=== PATIENT | female | born 1935 | race Two or more races ===

== ENCOUNTER 2016-10-09 14:31 | Inpatient (IN) | payer MEDICARE, OTHER ==
[~2016-10-09] VITALS: Ht 152.4 cm; Wt 81.6 kg
[~2016-10-09 14:31] MED LIST: ALLO100T PO; ASPI-991 PO; ATOR20TA PO; CARV3.122 PO; FENO145T20 PO; FOLI1TAB16 PO; FURO40TA5 PO; INSU3INS6 SQ
--- NOTE | 2016-10-09 14:45 | NUR ---
PT BIB PA FOR EVAL OF BLE +4 PITTING EDEMA. SKIN TAUT AND DRY. DENIES PAIN. NAD NOTED. RESP EVEN UNLABORED AT 3LPM VIA NC AT BASELINE. NO OTHER COMPLAINTS. IN ER BED 10.
[2016-10-09 15:31] LABS: BASOPHILS # (AUTO) 0.2 /CMM (0.0-0.2); BASOPHILS % (AUTO) 2.1 % (0.0-2.0); EOSINOPHILS % (AUTO) 0.6 % (0.0-6.0); HEMATOCRIT 32 % (33-45); HEMOGLOBIN 10.4 g/dL (11.5-14.8); LYMPHOCYTES # (AUTO) 3.4 /CMM (0.8-4.8); LYMPHOCYTES % (AUTO) 44.1 % (20.0-44.0); MEAN CORPUSCULAR HEMOGLOBIN 30 PG (26.0-33.0); MEAN CORPUSCULAR HGB CONC 32 g/dl (31.0-36.0); MEAN CORPUSCULAR VOLUME 93 fL (82-100); MONOCYTES # (AUTO) 0.7 /CMM (0.1-1.30); MONOCYTES % (AUTO) 8.5 % (2.0-12.0); NEUTROPHILS # (AUTO) 3.4 /CMM (1.8-8.9); NEUTROPHILS % (AUTO) 44.7 % (43.0-81.0); PLATELET COUNT (AUTO) 195 /CMM (150-450); RDW COEFFICIENT OF VARIATION 15.8 (11.5-15.0); RED BLOOD CELL COUNT(AUTO) 3.46 MIL/uL (4.0-5.2); WHITE BLOOD COUNT (AUTO) 7.7 K/uL (4.3-11.0)
[2016-10-09 15:46] LABS: CALCIUM, SERUM 8.8 mg/dL (8.5-10.1); POTASSIUM 4.7 mmol/L (3.5-5.1)
[2016-10-09 15:48] LABS: INR 1.06 (0.87-1.13)
[2016-10-09 15:49] LABS: TROPONIN I 0.032 ng/mL (0.00-0.056)
[2016-10-09 15:59] LABS: ALBUMIN 3.1 g/dL (3.4-5.0); BILIRUBIN,DIRECT 0.1 mg/dL (0.0-0.2); BILIRUBIN,TOTAL 0.3 mg/dL (0.2-1.0); TOTAL PROTEIN, SERUM 7.4 g/dL (6.4-8.2)
[2016-10-09] MEDS ORDERED: BLOO-668 IN (15:59)
[2016-10-09] MEDS ORDERED: INSU100V11 SQ (15:59)
[2016-10-09] MEDS ORDERED: LATA2.5D7 EACHEYE (15:59)
[2016-10-09] MEDS ORDERED: ATOR40TA PO (15:59)
[2016-10-09] MEDS ORDERED: MULT-659 PO (15:59)
[2016-10-09] MEDS ORDERED: DIPH25CA6 PO (15:59)
[2016-10-09] MEDS ORDERED: ASPI81TA2 PO (15:59)
[2016-10-09] MEDS ORDERED: NITR0.4T6 SL (15:59)
[2016-10-09] MEDS ORDERED: CHOL100044 PO (15:59)
[2016-10-09] MEDS ORDERED: POTA-88 PO (15:59)
[2016-10-09] MEDS ORDERED: DORZ10DR11 EACHEYE (15:59)
[2016-10-09] MEDS ORDERED: HYDR-3326 PO (15:59)
[2016-10-09] MEDS ORDERED: IPRA3AMP IH (15:59)
[2016-10-09] MEDS ORDERED: ASCO500T9 PO (15:59)
[2016-10-09] MEDS ORDERED: ACET-868 PO (15:59)
[2016-10-09] MEDS ORDERED: BISA5TAB10 PO (15:59)
--- NOTE | 2016-10-09 16:55 | NUR ---
MS 107
--- NOTE | 2016-10-09 17:13 | NUR ---
REPORT GIVEN TO HARISH RAMÍREZ FOR ADMISSION
--- NOTE | 2016-10-09 17:53 | NUR ---
PT TRANSPORTED TO 107 IN STABLE CONDITION VIA ACLS PROTOCOL
[2016-10-09 18:00] VITALS: BP 135/72
[2016-10-09] MEDS ORDERED: ONDANSETRON HCL/PF 4 MG/2 ML VIAL IVP PRN (18:00)
[2016-10-09] MEDS ORDERED: ZOLPIDEM TARTRATE 5 MG TABLET PO PRN (18:00)
[2016-10-09] MEDS ORDERED: BLOOD SUGAR DIAGNOSTIC 1 EACH STRIP IN SCH (18:00)
[2016-10-09] MEDS ORDERED: NITROGLYCERIN 0.4 MG/TAB BOTTLE SL PRN (18:00)
[2016-10-09] MEDS ORDERED: DEXTROSE 50%-WATER 50 ML DISP.SYRIN IV PRN (18:00)
[2016-10-09] MEDS ORDERED: MAG HYDROX/AL HYDROX/SIMETH 30 ML UDC PO PRN (18:00)
[2016-10-09] MEDS ORDERED: Medication Not On Formulary EA (Ipratropium/Albuterol Sulfate (Duoneb 2.5-0.5 Mg/3 Ml So IH PRN (18:00)
[2016-10-09] MEDS ORDERED: MAGNESIUM HYDROXIDE 30 ML UDC PO PRN (18:00)
[2016-10-09] MEDS ORDERED: Z GUARD REMEDY 2 OZ OINT TP PRN (18:00)
[2016-10-09] MEDS ORDERED: INSULIN REGULAR, HUMAN 100 UNIT/ML 3 ML VIAL SQ PRN (18:00)
[2016-10-09] MEDS ORDERED: ACETAMINOPHEN 325 MG TABLET PO PRN (18:00)
[2016-10-09] MEDS ORDERED: BISACODYL (5 MG) 5 MG TABLET.DR PO PRN (18:00)
--- NOTE | 2016-10-09 18:00 | NUR ---
RN NOTES RECEIVED PT FROM ER ON IN ROOM 107, A/Ox2-3 , ARMENIA SPEAKING , RESPIRATION EVEN AND UNLABORED , ON 02 3L N/C , PLACED ON TELE, HR IN 780'S ,CRACKLES TO SOPHIA LUNG BASES , ENCOURAGED DEEP BREATHING, L AC IV SITE #18 CDI, +2 EDEMA TO SOPHIA LOWER EXTREMITIES , SACRAL AND PERINEAL REDNESS AND EXCORIATION NOTED, WOUND CONSULT ORDERED ,SR UP x3 , CALL LIGHT WITHIN EASY REACH , CONTINUE TO MONITOR PT CLOSELY .
[2016-10-09] MEDS ORDERED: ALBUTEROL FS 2.5 MG/3 ML VIAL.NEB NEB PRN ×2 (18:30→19:00)
[2016-10-09] MEDS ORDERED: IPRATROPIUM NEB FS 0.5 MG/2.5 ML AMPUL.NEB NEB PRN (18:30)
[2016-10-09] MEDS ORDERED: FUROSEMIDE 40 MG/4 ML VIAL IV ONE (18:30)
[2016-10-09] MEDS: ENOXAPARIN SODIUM 40 MG/0.4 ML DISP.SYRIN SQ SCH (18:33)
[2016-10-09 20:00] VITALS: BP 146/77
[2016-10-09] MEDS ORDERED: ATORVASTATIN 40 MG TABLET PO SCH (22:00)
[2016-10-09] MEDS: LATANOPROST EYE DROP 0.005% 2.5 ML BOTTLE EACHEYE SCH (22:15)
[2016-10-09] MEDS: BLOOD SUGAR DIAGNOSTIC 1 EACH STRIP VI SCH (22:24)
[2016-10-09] MEDS: INSULIN DETEMIR 100 UNIT/ML CARTRIDGE SQ SCH (22:27)
[2016-10-09] MEDS: *INSULIN REGULAR(HUMULIN R)HUM 100 UNIT/ML VIAL SQ PRN (23:42)
[2016-10-10] VITALS: BP 132/62
--- NOTE | 2016-10-10 | NUR ---
PROMPT CARE RN: PT REMAINED A/O 2-3. PLACED ON HIGH-CADE'S STILL NOTED WT SOB AND DESATURATION BET. 88-92% ON SEMI-CADE'S AND SINCE START OF SHIFT. INCREASED 02 TO 5L VIA NC AND BREATHING TX GIVEN BY RT. WILL CONTINUE TO MONITOR EFFECTIVITY.
--- NOTE | 2016-10-10 00:30 | NUR ---
LIVESTOCK FARMER: 02 SAT IMPROVED AT 96%. WILL KEEP HOB ELEVATED AT ALL TIMES. REMAINED SR WT BBB.
[2016-10-10 04:00] VITALS: BP 119/45
[2016-10-10 06:37] LABS: BASOPHILS % (AUTO) 0.5 % (0.0-2.0); EOSINOPHILS % (AUTO) 0.2 % (0.0-6.0); HEMATOCRIT 37 % (33-45); HEMOGLOBIN 11.7 g/dL (11.5-14.8); LYMPHOCYTES # (AUTO) 4.9 /CMM (0.8-4.8); LYMPHOCYTES % (AUTO) 48.9 % (20.0-44.0); MEAN CORPUSCULAR HEMOGLOBIN 30 PG (26.0-33.0); MEAN CORPUSCULAR HGB CONC 31 g/dl (31.0-36.0); MEAN CORPUSCULAR VOLUME 94 fL (82-100); MONOCYTES # (AUTO) 1.1 /CMM (0.1-1.30); NEUTROPHILS % (AUTO) 39.4 % (43.0-81.0); PLATELET COUNT (AUTO) 204 /CMM (150-450); RDW COEFFICIENT OF VARIATION 16.9 (11.5-15.0); RED BLOOD CELL COUNT(AUTO) 3.97 MIL/uL (4.0-5.2); WHITE BLOOD COUNT (AUTO) 10.1 K/uL (4.3-11.0)
[2016-10-10 06:50] LABS: CALCIUM, SERUM 8.8 mg/dL (8.5-10.1); MAGNESIUM 1.5 mg/dL (1.8-2.4); PHOSPHORUS 4.7 mg/dL (2.5-4.9); POTASSIUM 4.6 mmol/L (3.5-5.1)
[2016-10-10] MEDS: BLOOD SUGAR DIAGNOSTIC 1 EACH STRIP VI SCH ×4 (06:50→21:46)
--- NOTE | 2016-10-10 06:50 | NUR ---
CAKE TESTER: STILL ON 5L 02 VIA NC WT 02 SAT 93%. NO ACUTE DISTRESS, NO C/O PAIN. DIAPER WAS CHANGED 2X DURING THE SHIFT WT 1 HEAVY SOAKED AND 1 MINIMALLY SOAKED. GOOD SKIN CARE RENDERED. HOB ELEVATED AT ALL TIMES. SAFETY PRECAUTION NOTED.
[2016-10-10 07:10] LABS: THYROID STIMULATING HORMONE 1.944 uIU/mL (0.358-3.74)
--- NOTE | 2016-10-10 07:15 | NUR ---
PASTRY CHEF INITIAL NOTES RECEIVED REPORT AND PT FROM PM NURSE, PT RESTING UPRIGHT IN BED, A&O X2-3 MARSHALLESE SPEAKING, ON 4-5L NC SAT ABOVE 93%, NO SOB, ON TELE MON SR WITH BBB 85, LT AC 18 G INTACT NO S/S OF INFILTRATION, ALL NEEDS MET, ALL SAFETY MEASURES INITIATED, SIDE RAILS X2, BED LOW AND LOCKED, CALL LIGHT WITHIN REACH, WILL CONTINUE TO MONITOR.
[2016-10-10 08:00] VITALS: BP 156/80
--- NOTE | 2016-10-10 08:51 | NUR ---
WOUND CARE CONSULT: PT REFUSED SKIN ASSESSMENT AND IS SOMEWHAT COMBATIVE AT TIMES. WILL SEE PT PT CONDITION PERMITS. RUBI SCORE IS 14. PT ABLE TO ASSIST WITH TURNING AND REPOSITIONING BUT IS UNCOOPERATIVE AT TIMES PER NURSING STAFF. PT ON ANKIT COMFORT GEL MATTRESS. ALL SKIN PROTECTION RECOMMENDATIONS DISCUSSED WITH NURSING STAFF. MD IN AGREEMENT WITH PLAN OF CARE.
[2016-10-10] MEDS ORDERED: FUROSEMIDE 40 MG/4 ML VIAL IV SCH (09:00)
[2016-10-10] MEDS ORDERED: FENOFIBRATE NANOCRYS (145 MG) 145 MG TABLET PO SCH (09:00)
[2016-10-10] MEDS: FOLIC ACID 1 MG TABLET PO SCH (09:01)
[2016-10-10] MEDS: PANTOPRAZOLE 40 MG TABLET.DR PO SCH (09:01)
[2016-10-10] MEDS: CHOLECALCIFEROL 1,000 UNIT TABLET (VIT D3) PO SCH (09:01)
[2016-10-10] MEDS: ASPIRIN 81 MG TAB.CHEW PO SCH (09:01)
[2016-10-10] MEDS: ASCORBIC ACID 500 MG TABLET PO SCH (09:01)
[2016-10-10] MEDS: MULTIVIT, IRON, MIN NO. 8, FA 1 TAB TABLET PO SCH (09:01)
[2016-10-10] MEDS: TIMOLOL MAL/DORZOLAM HCL OPHTH 10 ML BOTTLE EACHEYE SCH ×2 (09:01→16:48)
[2016-10-10] MEDS: ALLOPURINOL 100 MG TABLET PO SCH (09:01)
[2016-10-10] MEDS: CARVEDILOL 3.125 MG TABLET PO SCH (09:03)
[2016-10-10] MEDS ORDERED: ENOXAPARIN SODIUM 40 MG/0.4 ML DISP.SYRIN SQ SCH (10:00)
[2016-10-10] MEDS ORDERED: IV SET PRIMARY PUMP SET 1 EA INFUS.SET MC ONE (10:38)
[2016-10-10] MEDS: FUROSEMIDE 40 MG/4 ML VIAL IV SCH ×3 (10:50→16:48)
[2016-10-10] MEDS: Magnesium 1GM/D5W 100ML PREMIX 100 ML IV SCH ×4 (10:50→14:12)
--- NOTE | 2016-10-10 12:38 | NUR ---
RN MS NOTES PT IS VERY CONFUSED AND TRIES TO GET OUT OF BED, AT BEDSIDE CALMED PT DOWN, PT REFUSES TO EAT AND IS VERY CONFUSED.
[2016-10-10 16:00] VITALS: BP 112/64
[2016-10-10 20:00] VITALS: BP 137/73
[2016-10-10] MEDS: ENOXAPARIN SODIUM 40 MG/0.4 ML DISP.SYRIN SQ SCH (21:49)
[2016-10-10] MEDS: LATANOPROST EYE DROP 0.005% 2.5 ML BOTTLE EACHEYE SCH (21:49)
[2016-10-10] MEDS: INSULIN DETEMIR 100 UNIT/ML CARTRIDGE SQ SCH (21:49)
[2016-10-11] VITALS (44 sets, daily range): BP systolic 46–139; BP diastolic 33–77
--- NOTE | 2016-10-11 06:52 | NUR ---
MS-1/LIQUOR CLERK PT MAKING SEVERAL ATTEMPTS TO EXIT BED AND REMOVE OXYGEN. I TRIED TO REORIENT PT BUT IT SEEMS UNSUCCESSFUL. ENDORSED TO AM SHIFT.
[2016-10-11] MEDS: BLOOD SUGAR DIAGNOSTIC 1 EACH STRIP VI SCH ×4 (06:55→21:08)
--- NOTE | 2016-10-11 07:00 | NUR ---
RN NOTES RECEIVED PT ON BED, AOx1, [place] SPEAKING ,RESPIRATION EVEN AND UNLABORED, ON O2 5L N/C , NO SOB NOTED , LT AC 18 G INTACT NO S/S OF INFILTRATION, SR UP x3, CALL LIGHT WITHIN EASY REACH ALL NEEDS MET, ALL SAFETY MEASURES INITIATED, SIDE RAILS X2, BED LOW AND LOCKED, WILL CONTINUE TO MONITOR PT CLOSELY AND NOTIFY MD FOR ANY SIGNIFICANT CHANGES.
[2016-10-11] MEDS: ALLOPURINOL 100 MG TABLET PO SCH (08:16)
[2016-10-11] MEDS: ASCORBIC ACID 500 MG TABLET PO SCH (08:16)
[2016-10-11] MEDS: ASPIRIN 81 MG TAB.CHEW PO SCH (08:17)
[2016-10-11] MEDS: CARVEDILOL 3.125 MG TABLET PO SCH (08:17)
[2016-10-11] MEDS: MULTIVIT, IRON, MIN NO. 8, FA 1 TAB TABLET PO SCH (08:17)
[2016-10-11] MEDS: FOLIC ACID 1 MG TABLET PO SCH (08:17)
[2016-10-11] MEDS: PANTOPRAZOLE 40 MG TABLET.DR PO SCH (08:17)
[2016-10-11] MEDS: CHOLECALCIFEROL 1,000 UNIT TABLET (VIT D3) PO SCH (08:17)
[2016-10-11] MEDS: TIMOLOL MAL/DORZOLAM HCL OPHTH 10 ML BOTTLE EACHEYE SCH ×2 (08:18→17:53)
[2016-10-11] MEDS: HYDROCODONE/APAP 5/325MG 1 EACH TABLET PO PRN ×2 (08:28→13:05)
[2016-10-11 09:01] LABS: CALCIUM, SERUM 8.8 mg/dL (8.5-10.1); CREATININE 1.1 mg/dL (0.6-1.3); MAGNESIUM 2.3 mg/dL (1.8-2.4); POTASSIUM 4.5 mmol/L (3.5-5.1)
[2016-10-11] MEDS: LEVOFLOXACIN (750 MG) 750 MG TABLET PO SCH (11:17)
[2016-10-11] MEDS: FUROSEMIDE 100 MG/10 ML VIAL IV SCH ×2 (11:17→15:00)
--- NOTE | 2016-10-11 12:00 | NUR ---
RN NOTES PT SITTING ON THE EDGE OF THE BED , PT C/O POOR APPETITE , ENCOURAGED PO INTAKE . SUPPORTIVE FAMILY AT THE BEDSIDE .
[2016-10-11 13:38] LABS: APPEARANCE,URINE CLOUDY (CLEAR); BILIRUBIN,URINE NEGATIVE (NEGATIVE); BLOOD, URINE 3+ Ery/uL (NEGATIVE); COLOR,URINE YELLOW (YELLOW); KETONES,URINE NEGATIVE (NEGATIVE); LEUKOCYTE ESTERASE ,URINE 1+ (NEGATIVE); NITRITE, URINE POSITIVE (NEGATIVE); PH,URINE 6.5 (5.0-8.0); PROTEIN,URINE 3+ mg/dl (NEGATIVE); UGLUCOSE NEGATIVE (NEGATIVE); UROBILINOGEN,URINE 0.2 EU/dL (0.2)
[2016-10-11] MEDS: NYSTATIN CREAM 15 GM TUBE TP SCH ×2 (14:00→17:53)
[2016-10-11 14:03] LABS: ADD URINE CULTURE YES; BACTERIA,URINE Few /HPF (None Seen); SQUAMOUS EPITHELIAL CELL,UR Few /HPF (None Seen); WBC,URINE TOO NUMEROUS TO COUN /HPF (0-3)
--- NOTE | 2016-10-11 14:25 | NUR ---
RN NOTES PT IS AGITATED AND WANTS TO BE OUT OF THE BED , ASSISTED PT TO SIT ON THE EDGE OF THE BED WITH BED ALARM ON , DR WALLACE NOTIFIED AND HALDOL PO ORDERED FOR AGITATION , RF=[id number]. HR =80 R= 22 , O2 SAT 96%. CONTINUE TO MONITOR PT CLOSELY .
[2016-10-11] MEDS ORDERED: HALOPERIDOL 1 MG TABLET PO PRN ×3 (14:30→15:30)
--- NOTE | 2016-10-11 15:09 | NUR ---
RN NOTES PT WAS FOUND UNRESPONSIVE, BLUE, NO PULSE, CODE BLUE ACTIVATED, CRASH CART AT BEDSIDE, CPR STARTED, CODE BLUE TEAM ARRIVED, ACLS STARTED, PT SHOCKED AND INTUBATED, PULSE RETURNED, PT TRANSFERRED TO ICU 254.
--- NOTE | 2016-10-11 15:09 | NUR ---
RN NOTES UPON ARRIVAL TO THE ROOM TO GIVE LASIX IV PER DR. HORAN .PT FOUND UNRESPONSIVE WITH NO PULES AND NO RESPIRATION . CPR STARTED AND CODE BLUE PAGED OVER HEAD.
[2016-10-11] MEDS ORDERED: FUROSEMIDE 40 MG/4 ML VIAL ONE (15:13)
--- NOTE | 2016-10-11 15:30 | NUR ---
RN NOTES PT INTUBATED AND TRANSFERRED TO ROOM 254 IN ICU ,REPORT GIVEN TO OMAIRA RAMÍREZ ,
--- NOTE | 2016-10-11 15:40 | NUR ---
PT CODED AND INTUBATED BY EVELYNE MOSLEY FOR AIRWAY PROTECTION. PT IS ON 7.0 ETT SECURED @ 21 CM [id number]. CO2 DETECTOR CHANGED IN GOLD COLOR WITH BILATERAL CHEST RISE AND COURSE RHONCHI BILATERAL. SXN MOD AMNT FRESH BOOD SECRETIONS. VENT SETTINGS BELOW PER RT DRIVEN PROTOCOL: AC 18 VT 550 FIO2 100% NO PEEP VENT PLUGGED INTO RED OUTLET WITH ALARM ON AND AUDIBLE. AMBUBAG @ BEDSIDE. Addendum: 10/11/16 at 1607 by JOSHUA SULLIVAN RT Amended: Links added.
--- NOTE | 2016-10-11 15:56 | NUR ---
PT NOT STABLE FOR CTA CHEST SCAN. RN WILL CALL.
[2016-10-11] MEDS ORDERED: NOREPINEPHRINE 16 MG in IV D5W 500 ML IV PRN ×2 (16:00→16:30)
[2016-10-11] MEDS ORDERED: IV SET PRIMARY PUMP SET 1 EA INFUS.SET MC ONE ×2 (16:03→18:03)
--- NOTE | 2016-10-11 16:15 | NUR ---
RN NOTES PT , INFORMED REGARDING PT STATUS AND TRANSFERRING TO ICU .
[2016-10-11] MEDS ORDERED: SODIUM BICARBONATE SYR 50 MEQ/50 ML DISP.SYRIN IV ONE (16:16)
[2016-10-11] MEDS ORDERED: EPINEPHRINE (1:10,000) SYRINGE 1 MG/10 ML DISP.SYRIN IVP ONE (16:16)
--- NOTE | 2016-10-11 16:36 | NUR ---
MECHANICAL HANDYMAN RECEIVED PT FROM NICOLE INTUBATED S/P CARDIAC AREST CHEST COMPRESSION, REPORT GOT FROM ADEL RN, STAT CENTRAL LINE INCERTED BY DR. MARLO LUNA CALLED FAMILY FOR CONSENT UNABLE TO GET HOLD OF THEM, ALEIDA INCERTED STARTED PT ON LEVOPHED FOR SBP SUPPORT, MD BUTLER AT BEDSIDE ORDERS RECEIVED AND CARRIED OUT, CHEXT XRAY OBTAINED OK TO USE CENTRAL LINE P/DR. BUTLER, WILL CONTINUE TO INTERVENE AND FOLLOW MD ORDERS. PT IS STILL NOT WAKING UP NOT ON ANY SEDATION MEDS, APPLIED RESTRAINTS PT MIGHT WAKE UP AND PULL LINES SHE IS UNSTABLE. LAB ORDERS PUT IN AWAITING FOR RESULTS. SBP STABLE HR 60S O2 SAT 100% ON VENT.
[2016-10-11 16:38] LABS: BASOPHILS % (AUTO) 0.3 % (0.0-2.0); EOSINOPHILS % (AUTO) 0.1 % (0.0-6.0); HEMATOCRIT 32 % (33-45); HEMOGLOBIN 10.1 g/dL (11.5-14.8); LYMPHOCYTES # (AUTO) 2.2 /CMM (0.8-4.8); LYMPHOCYTES % (AUTO) 18.9 % (20.0-44.0); MEAN CORPUSCULAR HEMOGLOBIN 29 PG (26.0-33.0); MEAN CORPUSCULAR HGB CONC 31 g/dl (31.0-36.0); MEAN CORPUSCULAR VOLUME 94 fL (82-100); MONOCYTES # (AUTO) 0.2 /CMM (0.1-1.30); MONOCYTES % (AUTO) 1.4 % (2.0-12.0); NEUTROPHILS # (AUTO) 9.1 /CMM (1.8-8.9); NEUTROPHILS % (AUTO) 79.3 % (43.0-81.0); PLATELET COUNT (AUTO) 214 /CMM (150-450); RDW COEFFICIENT OF VARIATION 16.8 (11.5-15.0); RED BLOOD CELL COUNT(AUTO) 3.44 MIL/uL (4.0-5.2); WHITE BLOOD COUNT (AUTO) 11.5 K/uL (4.3-11.0)
[2016-10-11 16:46] LABS: INR 1.2 (0.87-1.13)
[2016-10-11 16:49] LABS: CALCIUM, SERUM 8.4 mg/dL (8.5-10.1); CREATININE 1.5 mg/dL (0.6-1.3); MAGNESIUM 2.3 mg/dL (1.8-2.4); PHOSPHORUS 6.7 mg/dL (2.5-4.9); POTASSIUM 5.1 mmol/L (3.5-5.1)
[2016-10-11 16:53] LABS: TROPONIN I 0.096 ng/mL (0.00-0.056)
[2016-10-11 17:00] LABS: LACTIC ACID 4.5 mmol/L (0.4-2.0)
[2016-10-11 17:34] LABS: ABG BASE EXCESS 5.4 mmol/L; ABG OXYGEN SATURATION 88.8 % (92.0-98.5); ABG PCO2 56.8 mmHg (35.0-45.0); ABG PH 7.369 (7.350-7.450); ABG TOTAL HEMOGLOBIN 11.7 G/dL (12.0-16.0); AaDO2 599.2 mmHg; COHb 1.3 % (0.5-1.5); MetHb 0.9 % (0.0-1.5); O2Hb 86.8 % (94.0-97.0); SITE, ABG Left Radial
[2016-10-11] MEDS: ALBUMIN 25% 25 GM in PREMIX 1 EA IV SCH (17:53)
[2016-10-11 18:58] LABS: BILIRUBIN,DIRECT 0.3 mg/dL (0.0-0.2); BILIRUBIN,TOTAL 0.7 mg/dL (0.2-1.0)
[2016-10-11 19:04] LABS: LACTIC ACID REFLEX 1.8 mmol/L (0.4-1.9)
--- NOTE | 2016-10-11 19:21 | NUR ---
COMMUNITY AFFAIRS MANAGER NOTES RECEIVED PT IN BED, OBTUNDED. S/P CARDIAC ARREST. ON VENT VIA 7.5 ETT, 18 CM AT LIPS. FIO2 100%. TELE READS SINUS RHYTHM AT 67 BPM. NO S/S OF ACUTE DISTRESS. 0/10 PAIN SCALE PER FLACC SCALE. OGT IN PLACE, TO LIS, NO APPARENT DRAINAGE. SHIN CATH IN PLACE, DRAINING TO MILKY CLOUDY URINE. IV SITES AT LAC 20G, RW 20G AND LIJ TLC. RUNNING ALBUMIN AND LEVO AT 8 MCG/MIN. HOB ELEVATED, SIDE RAILS X3. TURNED AND REPOSITIONED. DNR CODE STATUS.
--- NOTE | 2016-10-11 19:47 | NUR ---
pt received on vent via ett, settigns as charted ambu bag at bedside alarms set and audible. disconnect alarms checked suctioned a small amount of frothy red secretions breath sounds equal bilateral coarse pt receiving albuterol and atrovent prn Addendum: 10/11/16 at 6 by VIKTOR HERNANDEZ RT Amended: Links added.
[2016-10-11] MEDS: LATANOPROST EYE DROP 0.005% 2.5 ML BOTTLE EACHEYE SCH (21:10)
[2016-10-11] MEDS: ENOXAPARIN SODIUM 40 MG/0.4 ML DISP.SYRIN SQ SCH (21:11)
[2016-10-11] MEDS: *INSULIN REGULAR(HUMULIN R)HUM 100 UNIT/ML VIAL SQ PRN (21:13)
[2016-10-11] MEDS ORDERED: INSULIN DETEMIR 100 UNIT/ML CARTRIDGE SQ SCH (22:00)
[2016-10-12] VITALS (47 sets, daily range): BP systolic 85–160; BP diastolic 41–74
--- NOTE | 2016-10-12 02:00 | NUR ---
DIRECTOR PRIVATE NOTES PT TITRATED OFF OF LEVOPHED. SBP 124. VSS.
[2016-10-12] MEDS: HYDROCODONE/APAP 5/325MG 1 EACH TABLET PO PRN ×2 (02:28→06:00)
--- NOTE | 2016-10-12 02:30 | NUR ---
DIRECTOR OF DEMENTIA OPERATIONS NOTES PT NOTED WITH TACHYPNEA. RR 34. PT ASSESSED AND PRESUMED TO BE IN PAIN. PRN NORCO GIVEN.
--- NOTE | 2016-10-12 03:00 | NUR ---
COUNTER TOP MAKER NOTES PT GIVEN BED BATH, LINENS CHANGED, PT PLACED ON KCI MATTRESS. TURNED AND REPOSITIONED. ORAL CARE AND SUCTION PROVIDED.
[2016-10-12 04:41] LABS: BASOPHILS % (AUTO) 0.1 % (0.0-2.0); EOSINOPHILS % (AUTO) 0.1 % (0.0-6.0); HEMATOCRIT 28 % (33-45); HEMOGLOBIN 8.9 g/dL (11.5-14.8); LYMPHOCYTES # (AUTO) 2.1 /CMM (0.8-4.8); MEAN CORPUSCULAR HEMOGLOBIN 29 PG (26.0-33.0); MEAN CORPUSCULAR HGB CONC 32 g/dl (31.0-36.0); MEAN CORPUSCULAR VOLUME 92 fL (82-100); MONOCYTES # (AUTO) 0.8 /CMM (0.1-1.30); MONOCYTES % (AUTO) 6.2 % (2.0-12.0); NEUTROPHILS # (AUTO) 9.4 /CMM (1.8-8.9); NEUTROPHILS % (AUTO) 76.6 % (43.0-81.0); PLATELET COUNT (AUTO) 181 /CMM (150-450); RDW COEFFICIENT OF VARIATION 16.4 (11.5-15.0); RED BLOOD CELL COUNT(AUTO) 3.04 MIL/uL (4.0-5.2); WHITE BLOOD COUNT (AUTO) 12.3 K/uL (4.3-11.0)
[2016-10-12 04:57] LABS: CALCIUM, SERUM 8.4 mg/dL (8.5-10.1); CREATININE 1.8 mg/dL (0.6-1.3); MAGNESIUM 2.1 mg/dL (1.8-2.4); PHOSPHORUS 4.1 mg/dL (2.5-4.9); POTASSIUM 4.9 mmol/L (3.5-5.1)
[2016-10-12] MEDS: ALBUMIN 25% 25 GM in PREMIX 1 EA IV SCH (05:15)
--- NOTE | 2016-10-12 06:30 | NUR ---
CHEF FRENCH NOTES PT CONTINUES TO HAVE TACHYPNEA AFTER PRN PAIN MED. ROSIE CERAMIST MADE AWARE. NEW ORDER FOR DIPRIVAN RECEIVED.
[2016-10-12] MEDS ORDERED: PROPOFOL 100 ML IV ONE (06:35)
[2016-10-12] MEDS ORDERED: IV SET PRIMARY PUMP SET 1 EA INFUS.SET MC ONE (06:36)
[2016-10-12] MEDS: BLOOD SUGAR DIAGNOSTIC 1 EACH STRIP VI SCH ×2 (06:39→11:14)
[2016-10-12] MEDS ORDERED: PROPOFOL 100 ML IV PRN (07:00)
[2016-10-12] MEDS ORDERED: MULTIVITAMIN LIQ 5 ML UDC NG SCH (07:18)
--- NOTE | 2016-10-12 08:00 | NUR ---
PT UNRESPONSIVE, NO LIMB MOVEMENT, UPWARD GAZE SOPHIA EYES WITHOUT RETURN TO MIDLINE, OCCAS RIGID POSTURING IN RESPONSE TO NOX STIM. D/W DR HORAN ALL MEDS, LABS, CXR R/V'D WITH MD INCLUDING TLC POSITION, URINE OUTPUT 10 MLS Q 2HR.. 0830- CVP MONITORING INITIATED= 14-15 MMHG. BUMEX GTT ORDERED
[2016-10-12] MEDS ORDERED: IV NS 0.9% 500 ML IV ONE (08:10)
[2016-10-12] MEDS ORDERED: BUMETANIDE INJ 16 MG in IV NS 0.9% 16 ML IV ONE (08:30)
[2016-10-12] MEDS: CHOLECALCIFEROL 1,000 UNIT TABLET (VIT D3) PO SCH (08:39)
[2016-10-12] MEDS: FOLIC ACID 1 MG TABLET PO SCH (08:39)
[2016-10-12] MEDS: ALLOPURINOL 100 MG TABLET PO SCH (08:39)
[2016-10-12] MEDS: ASPIRIN 81 MG TAB.CHEW PO SCH (08:39)
[2016-10-12] MEDS: ASCORBIC ACID 500 MG TABLET PO SCH (08:39)
[2016-10-12] MEDS: CARVEDILOL 3.125 MG TABLET PO SCH (08:40)
[2016-10-12] MEDS: NYSTATIN CREAM 15 GM TUBE TP SCH (08:41)
[2016-10-12] MEDS: TIMOLOL MAL/DORZOLAM HCL OPHTH 10 ML BOTTLE EACHEYE SCH (08:47)
[2016-10-12] MEDS ORDERED: PANTOPRAZOLE 40 MG VIAL IV SCH (09:00)
--- NOTE | 2016-10-12 09:00 | NUR ---
DIPRIVAN GTT OFF NO TACHYPNEA NO ETT BITING AT PRESENT
[2016-10-12 09:05] LABS: ABG BASE EXCESS 0.6 mmol/L; ABG OXYGEN SATURATION 95.5 % (92.0-98.5); ABG PCO2 37.2 mmHg (35.0-45.0); ABG PH 7.439 (7.350-7.450); ABG PO2 84.9 mmHg (75.0-100.0); ABG TOTAL HEMOGLOBIN 9.3 G/dL (12.0-16.0); AaDO2 590.9 mmHg; COHb 0.9 % (0.5-1.5); MetHb 0.8 % (0.0-1.5); O2Hb 93.9 % (94.0-97.0); PEEP,BG 5 cm H2O; SITE, ABG Left Radial; VT, ABG 400 mL
--- NOTE | 2016-10-12 09:13 | NUR ---
ABG R/V'D WITH R.T.-NO CHANGES OF VENT INDICATED
--- NOTE | 2016-10-12 09:35 | NUR ---
OFF OF PROPOFOL THE PT IS TACHYPNEIC, RR 40 BPM, AND PRESSURE LIMITING VENT WITH LOW VOLUMES AND DESAT TO 89%. NO EVIDENCE OF BITING. LG AMTS THIN BLOOD TINGED SECRETIONS. D/W R.T.- DECISION MADE TO RESUME LOW DOSE PROPOFOL
[2016-10-12] MEDS: LEVOFLOXACIN (750 MG) 750 MG TABLET PO SCH (11:05)
--- NOTE | 2016-10-12 11:26 | NUR ---
LONG D/W AND OTHER FAMILY WHO HAVE LIMITED IRISH AND THEREFORE CONVERSATION WAS TRANSLATED INTO LEBANESE BY NIECE. WANTS "TO PULL THE PLUG RIGHT NOW" AND IS ANGRY THAT WE CANNOT YET COMPLY. I EXPLAINED THAT THE TIME FACTOR IS TANTAMOUNT IN A POST ARREST AND THAT FACTOR IS AT LEAST 72 HRS IN ORDER TO EVALUATE NEURO RECOVERY AND THAT MDS WOULD NOT DISCONTINUE ALL TUBES AND SUPPORT TODAY. FAMILY INDICATES THAT THEY UNDERSTAND AND WILL RESPECT MD OPINIONS
--- NOTE | 2016-10-12 12:21 | NUR ---
DR CRUZ HERE TO EXAMINE PT. AND NEPHEW AT BEDSIDE. NEPHEW FURIOUS AND WANTS THE TUBES PULLED OUT AND ALLOW THE PT TO RIGHT NOW WE ARE "ONLY TRYING TO MAKE MONEY AND DO RESEARCH ON THE PT". NEPHEW TALKED TO DR CRUZ. DR BRITO CALLED NEPHEW DEMANDS THAT HEAD DOCTOR COME HERE RIGHT NOW
[2016-10-12] MEDS ORDERED: MORPHINE SULFATE PF DRIP 250 MG in IV D5W 240 ML IV PRN (13:00)
[2016-10-12] MEDS ORDERED: LORAZEPAM INJ 2 MG/ML VIAL IV PRN (13:00)
--- NOTE | 2016-10-12 13:00 | NUR ---
AND NEPHEW WHO SPEAKS PERFECT [place] CITIZEN MET WITH DR BRITO AT BEDSIDE AND DIRECTS EXTUBATION, MORPHINE AND FULL COMFORT CARE. NEPHEW DIRECTS PT TO BE EXTUBATED "RIGHT NOW" AND THEN FAMILY LEFT HOSPITAL AFTER GIVING ME A PHONE NUMBER TO CALL ONCE SHE WAS . DR KRUSE NOTIFIED OF EVENTS Addendum: 10/12/16 at 1357 by APOORVA DIAZ RN DR Radha KRUSE
--- NOTE | 2016-10-12 13:05 | NUR ---
I TOLD THE NEPHEW BIB AND HE TRANSLATED TO PT'S THAT IT IS POSSIBLE THAT THE PT CAN RETURN TO BASELINE AND WAKE UP IN THE NEXT 48HRS TO WHICH BIB REPLIED THERE ARE LAWS AND YOU MUST OBEY US AND REMOVE THE TUBES AND MACHINE
[2016-10-12] MEDS ORDERED: MORPHINE SULFATE INJ 4 MG/ML DISP.SYRIN IV ONE (13:15)
--- NOTE | 2016-10-12 13:15 | NUR ---
PROPOFOL WHICH WAS AT 5 MCG/KG/MIN IS NOW OFF. MORPHINE 4 MG IVP X 1 AND R.T WILL EXTUBATE SOON DIRECTED BY FAMILY INSISTENCE
--- NOTE | 2016-10-12 13:25 | NUR ---
EXTUBATED BY RT AND O2 VIA N/C APPLIED
--- NOTE | 2016-10-12 13:29 | NUR ---
PT EXTUBATED PER DR. BRITO ORDERS FOR COMFORT CARE. PT EXTUBATED WITH NO COMPLICATIONS. PLACED ON 2LPM NASAL CANNULA. NO FURTHER INTERVENTION NEEDED.
--- NOTE | 2016-10-12 13:33 | NUR ---
PT PRONOUNCED . NO CODE STATUS ON COMFORT CARE. ASYSTOLE ON MONITOR. NO AUDIBLE HEART TONES. NO OBTAINABLE BP. NO SPONTAN RESPIRATORY EFFORT. PUPILS FIXED AND DILATED. AND ROZ MCCARTNEY NOTIFIED
--- NOTE | 2016-10-12 14:28 | NUR ---
DECLINED BY [facility]. BODY PREPARED AND PT SENT TO [facility]
[2016-10-13 14:14] LABS: *SPE A/G RATIO 0.8 (0.7-1.7); *SPE ALBUMIN 2.8 g/dL (2.9-4.4); *SPE ALPHA-1-GLOBULIN 0.2 g/dL (0.0-0.4); *SPE ALPHA-2-GLOBULIN 0.7 g/dL (0.4-1.0); *SPE BETA GLOBULIN 0.8 g/dL (0.7-1.3); *SPE GLOBULIN, TOTAL 3.5 g/dL (2.2-3.9); *SPE M-SPIKE Not Observed g/dL (Not Observed); *SPE PROTEIN TOTAL 6.3 g/dL (6.0-8.5); *SPEGAMMA GLOBULIN 1.8 g/dL (0.4-1.8)
== END 2016-10-12 13:34 | disposition expired | DRG 291 ==
LOC: ER 14:36 → MEDSG1 17:14 → TELE1 18:44 → MEDSG1 10-10 10:14 → ICU 10-11 15:32
PROVIDERS: ADMIT Student in an Organized Health Care Education/Training Program; ATTEND Student in an Organized Health Care Education/Training Program
PROC: 5A1935Z Respiratory Ventilation, Less than 24 Consecutive Hours (ICD-10-PCS; principal; 2016-10-11)
PROC: 0BH18EZ Insertion of Endotracheal Airway into Trachea, Via Natural or Artificial Opening Endoscopic (ICD-10-PCS; 2016-10-11)
PROC: 02HV33Z Insertion of Infusion Device into Superior Vena Cava, Percutaneous Approach (ICD-10-PCS; 2016-10-11)
PROC: B548ZZA Ultrasonography of Superior Vena Cava, Guidance (ICD-10-PCS; 2016-10-11)
DX: I11.0 Hypertensive heart disease with heart failure (principal); N17.0 Acute kidney failure with tubular necrosis; J96.91 Respiratory failure, unspecified with hypoxia; J96.92 Respiratory failure, unspecified with hypercapnia; J15.9 Unspecified bacterial pneumonia; L03.115 Cellulitis of right lower limb; L03.116 Cellulitis of left lower limb; N39.0 Urinary tract infection, site not specified; J90 Pleural effusion, not elsewhere classified; R57.9 Shock, unspecified; Z51.5 Encounter for palliative care; I50.33 Acute on chronic diastolic (congestive) heart failure; D63.8 Anemia in other chronic diseases classified elsewhere; E66.9 Obesity, unspecified; E83.42 Hypomagnesemia; F03.90 Unspecified dementia, unspecified severity, without behavioral disturbance, psychotic disturbance, mood disturbance, and anxiety; M10.00 Idiopathic gout, unspecified site; Z99.81 Dependence on supplemental oxygen; E11.9 Type 2 diabetes mellitus without complications; B96.1 Klebsiella pneumoniae [K. pneumoniae] as the cause of diseases classified elsewhere; I87.2 Venous insufficiency (chronic) (peripheral); L57.0 Actinic keratosis; E88.09 Other disorders of plasma-protein metabolism, not elsewhere classified; Z66 Do not resuscitate; B96.89 Other specified bacterial agents as the cause of diseases classified elsewhere; M19.90 Unspecified osteoarthritis, unspecified site
CPT/HCPCS: 31720; 36415; 36600; 71010-TC; 80048-TC; 80061-TC; 80076-TC; 81000-TC; 82247-TC; 82248-TC; 82728-TC; 82962-TC; 83540-TC; 83605-TC; 83735-TC; 83880; 84100-TC; 84155; 84165; 84439-TC; 84443-TC; 84484-TC; 85025-TC; 85610-TC; 85730-TC; 87081-TC; 87086-TC; 87186-TC; 93307-TC; 93970-TC; 94002-TC; 94003-TC; 94799-TC; A4216; A4606; C1751; C9113; J0171; J1650; J1815; J1940; J2270; J2274; J3475; J3490; J7040; J7060; P9047; Z7610